=== PATIENT | female | born 1970 | race Caucasian/White ===

== ENCOUNTER 2017-08-26 12:02 | Emergency (ER) | payer OTHER ==
[~2017-08-26] VITALS: Ht 170.2 cm; Wt 59.0 kg
[2017-08-26] MEDS ORDERED: CLEOCIN HCL150 MG PO (12:11)
[2017-08-26 12:18] VITALS: BP 131/88
== END 2017-08-26 12:23 | disposition home or self-care (01) ==
LOC: M.ERS 12:02
DX: A49.02 Methicillin resistant Staphylococcus aureus infection, unspecified site (principal); F41.9 Anxiety disorder, unspecified; E11.9 Type 2 diabetes mellitus without complications; I10 Essential (primary) hypertension; Z88.0 Allergy status to penicillin; Z88.1 Allergy status to other antibiotic agents; Z88.8 Allergy status to other drugs, medicaments and biological substances